=== PATIENT | female | born 1950 | race Caucasian/White ===

== ENCOUNTER 2022-04-12 10:08 | Inpatient (IN) | payer BC, OTHER ==
[2022-04-12] MEDS ORDERED: ACETAMINOPHEN 1000 MG/100 ML BAG IVPB ONE (12:44)
[2022-04-12] MEDS ORDERED: LIDOCAINE 5% TOPICAL PATCH TP ONE (12:44)
[2022-04-12] MEDS ORDERED: ACETAMINOPHEN INJECTION 100 ML IVPB ONE (14:03)
[2022-04-12] MEDS ORDERED: LIDOCAINE 5% TOPICAL PATCH ONE ×2 (14:03→15:59)
[2022-04-12 15:24] LABS: BASO % 0.6 % (0-2.0); EOS % 4.9 % (0-4.5); HEMATOCRIT 38.3 % (32.4-45.2); HEMOGLOBIN 12.6 GM/dL (10.7-15.3); LYMPH % 16.9 % (8-40); MCHC 32.9 g/dl (32.0-36.0); MEAN CELL VOLUME 88.2 fl (80-96); MEAN PLT VOLUME 7.7 fl (7.5-11.1); MONO % 8.3 % (3.8-10.2); NEUT % 69.3 % (42.8-82.8); PLATELET COUNT 212 10^3/uL (134-434); RBC 4.34 M/mm3 (3.60-5.2); RDW 17.4 % (11.6-15.6); WHITE BLOOD COUNT 5.2 K/mm3 (4.0-10.0)
[2022-04-12 15:41] LABS: ALBUMIN 3.1 g/dl (3.4-5.0); BLOOD UREA NITROGEN 21.6 mg/dL (7-18); CALCIUM 8.8 mg/dL (8.5-10.1); MAGNESIUM 2.3 mg/dL (1.8-2.4)
[2022-04-12 15:45] LABS: CREATININE 0.5 mg/dL (0.55-1.3); PHOSPHOROUS 3.7 mg/dL (2.5-4.9)
[2022-04-12 15:46] LABS: BILIRUBIN,TOTAL 0.8 mg/dL (0.2-1); TOT PROT 6.2 g/dl (6.4-8.2)
[2022-04-12] MEDS ORDERED: VANCOMYCIN 1 GM in D5W (PRE-DOCKED) 1,000 MG/250 ML IVPB ONE (16:02)
[2022-04-12] MEDS ORDERED: DEXAMETHASONE SOD PHOSPHATE 10 MG/1 ML VIAL IVPUSH ONE (16:05)
[2022-04-12] MEDS ORDERED: CEFEPIME HCL/D5W 2 GM/50 ML BAG IVPB ONE (16:07)
[2022-04-12 17:23] LABS: INR 1.04 (0.83-1.09)
[2022-04-12 17:25] LABS: ACTIVATED PTT 27.7 SECONDS (25.2-36.5)
[2022-04-12] MEDS ORDERED: DEXAMETHASONE SOD PHOSPHATE 10 MG/1 ML VIAL ONE (17:46)
[2022-04-12] MEDS ORDERED: VANCOMYCIN 1 GRAM (PRE-DOCKED) 1,000 MG/250 ML BAG IVPB ONE (17:46)
[2022-04-12] MEDS ORDERED: CEFEPIME 2 GM/100 ML BAG IVPB ONE (17:46)
[2022-04-12 17:57] LABS: URINE APPEARANCE CLEAR; URINE BILIRUBIN NEGATIVE (NEGATIVE); URINE COLOR YELLOW; URINE GLUCOSE (UA) NEGATIVE (NEGATIVE); URINE KETONE NEGATIVE (NEGATIVE); URINE LEUK ESTERASE NEGATIVE (NEGATIVE); URINE NITRITE NEGATIVE (NEGATIVE); URINE PROTEIN NEGATIVE (NEGATIVE)
[2022-04-12] MEDS ORDERED: morphine CARPU-JECT 4 MG/1 ML DISP.SYRIN IVPUSH ONE (19:12)
[2022-04-12] MEDS ORDERED: LIDOCAINE PATCH REMOVAL MC ONE (22:00)
[2022-04-12] MEDS ORDERED: ACETAMINOPHEN 1000 MG/100 ML BAG IVPB PRN (23:46)
[2022-04-13] MEDS ORDERED: morphine SULFATE 4 MG/ML VIAL ONE (00:38)
[2022-04-13 02:55] VITALS: BMI 27.6
[2022-04-13] MEDS ORDERED: MEROPENEM 500 MG VIAL (RESTRICTED TO ID) IVPB ONE ×2 (03:20→10:35)
[2022-04-13] MEDS ORDERED: DEXTROSE 5%-WATER 100 ML IVPB ONE ×2 (03:21→10:35)
[2022-04-13] MEDS: MEROPENEM 500 MG in DEXTROSE 5%-WATER 100 ML IVPB SCH ×2 (03:39→10:40)
[2022-04-13] MEDS: POLYETHYLENE GLYCOL (HEALTHYLAX) 3350 17 GM PACKET PO SCH ×3 (05:43→22:13)
[2022-04-13] MEDS: LEVOTHYROXINE NA 25 MCG TABLET (FP) PO SCH (06:46)
[2022-04-13] MEDS ORDERED: TOLTERODINE TARTRATE LA 4 MG CAP.SR.24H (FP) PO SCH ×3 (10:00)
[2022-04-13] MEDS: ENOXAPARIN NA (PORCINE) 40 MG/0.4 ML DISP.SYRIN SQ SCH (10:39)
[2022-04-13] MEDS: FLUoxetine HCL 20 MG CAPSULE PO SCH (10:40)
[2022-04-13] MEDS: PANTOPRAZOLE 40 MG TABLET PO SCH (10:40)
[2022-04-13 10:53] LABS: HEMATOCRIT 38.7 % (32.4-45.2); HEMOGLOBIN 12.8 GM/dL (10.7-15.3); MCH 28.8 pg (25.7-33.7); MCHC 33.1 g/dl (32.0-36.0); MEAN CELL VOLUME 87.1 fl (80-96); MEAN PLT VOLUME 7.9 fl (7.5-11.1); PLATELET COUNT 227 10^3/uL (134-434); RBC 4.44 M/mm3 (3.60-5.2); RDW 16.7 % (11.6-15.6); WHITE BLOOD COUNT 4.4 K/mm3 (4.0-10.0)
[2022-04-13 11:18] LABS: ALBUMIN 3.2 g/dl (3.4-5.0); BLOOD UREA NITROGEN 26.1 mg/dL (7-18); MAGNESIUM 2.3 mg/dL (1.8-2.4)
[2022-04-13 11:20] LABS: TOT PROT 6.3 g/dl (6.4-8.2)
[2022-04-13 11:21] LABS: PHOSPHOROUS 3.1 mg/dL (2.5-4.9)
[2022-04-13 11:22] LABS: BILIRUBIN,TOTAL 0.9 mg/dL (0.2-1); CREATININE 0.6 mg/dL (0.55-1.3)
[2022-04-13] MEDS ORDERED: VANCOMYCIN 1 GM/200 ML PREMIX BAG IVPB SCH (20:00)
[2022-04-13] MEDS: ATORVASTATIN CA 20 MG TABLET (FP) PO SCH (22:13)
[2022-04-14] MEDS ORDERED: MEROPENEM 500 MG in DEXTROSE 5%-WATER 100 ML IVPB SCH (02:00)
[2022-04-14] MEDS: POLYETHYLENE GLYCOL (HEALTHYLAX) 3350 17 GM PACKET PO SCH ×3 (05:19→21:05)
[2022-04-14] MEDS: LEVOTHYROXINE NA 25 MCG TABLET (FP) PO SCH (06:38)
[2022-04-14] MEDS: ENOXAPARIN NA (PORCINE) 40 MG/0.4 ML DISP.SYRIN SQ SCH (11:44)
[2022-04-14] MEDS: PANTOPRAZOLE 40 MG TABLET PO SCH (11:44)
[2022-04-14] MEDS: FLUoxetine HCL 20 MG CAPSULE PO SCH (11:44)
[2022-04-14] MEDS: oxyCODONE HCL 5 MG TABLET PO PRN ×2 (16:45→21:06)
[2022-04-14] MEDS ORDERED: VANCOMYCIN 1 GM/200 ML PREMIX BAG IVPB SCH (20:00)
[2022-04-14] MEDS: ATORVASTATIN CA 20 MG TABLET (FP) PO SCH (21:06)
[2022-04-15] MEDS: POLYETHYLENE GLYCOL (HEALTHYLAX) 3350 17 GM PACKET PO SCH ×3 (05:14→21:53)
[2022-04-15] MEDS: LEVOTHYROXINE NA 25 MCG TABLET (FP) PO SCH (06:06)
[2022-04-15] MEDS: ENOXAPARIN NA (PORCINE) 40 MG/0.4 ML DISP.SYRIN SQ SCH (10:36)
[2022-04-15] MEDS: FLUoxetine HCL 20 MG CAPSULE PO SCH (10:36)
[2022-04-15] MEDS: PANTOPRAZOLE 40 MG TABLET PO SCH (10:36)
[2022-04-15] MEDS: oxyCODONE HCL 5 MG TABLET PO PRN ×2 (10:37→16:53)
[2022-04-15] MEDS: ATORVASTATIN CA 20 MG TABLET (FP) PO SCH (21:53)
[2022-04-16] MEDS: oxyCODONE HCL 5 MG TABLET PO PRN ×2 (01:52→22:18)
[2022-04-16] MEDS: POLYETHYLENE GLYCOL (HEALTHYLAX) 3350 17 GM PACKET PO SCH ×3 (06:07→22:17)
[2022-04-16] MEDS: LEVOTHYROXINE NA 25 MCG TABLET (FP) PO SCH (06:07)
[2022-04-16] MEDS: ENOXAPARIN NA (PORCINE) 40 MG/0.4 ML DISP.SYRIN SQ SCH (10:00)
[2022-04-16] MEDS: FLUoxetine HCL 20 MG CAPSULE PO SCH (10:00)
[2022-04-16] MEDS: CHOLECALCIFEROL (VIT D3) 5000 UNITS (125 MCG) CAP PO SCH (18:08)
[2022-04-16] MEDS: ATORVASTATIN CA 20 MG TABLET (FP) PO SCH (22:17)
[2022-04-16] MEDS: CALCIUM CARBONATE 650 MG TABLET PO SCH (22:17)
[2022-04-17] MEDS: LEVOTHYROXINE NA 25 MCG TABLET (FP) PO SCH (06:18)
[2022-04-17] MEDS: POLYETHYLENE GLYCOL (HEALTHYLAX) 3350 17 GM PACKET PO SCH ×3 (09:59→21:06)
[2022-04-17] MEDS: ENOXAPARIN NA (PORCINE) 40 MG/0.4 ML DISP.SYRIN SQ SCH (09:59)
[2022-04-17] MEDS: CALCIUM CARBONATE 650 MG TABLET PO SCH ×2 (10:00→21:05)
[2022-04-17] MEDS: FLUoxetine HCL 20 MG CAPSULE PO SCH (10:00)
[2022-04-17] MEDS: CHOLECALCIFEROL (VIT D3) 5000 UNITS (125 MCG) CAP PO SCH (10:01)
[2022-04-17] MEDS: oxyCODONE HCL 5 MG TABLET PO PRN (13:25)
[2022-04-17] MEDS: ATORVASTATIN CA 20 MG TABLET (FP) PO SCH (21:05)
[2022-04-18] MEDS: LEVOTHYROXINE NA 25 MCG TABLET (FP) PO SCH (06:01)
[2022-04-18] MEDS: oxyCODONE HCL 5 MG TABLET PO PRN ×2 (06:04→18:39)
[2022-04-18] MEDS: ENOXAPARIN NA (PORCINE) 40 MG/0.4 ML DISP.SYRIN SQ SCH (10:55)
[2022-04-18] MEDS: CALCIUM CARBONATE 650 MG TABLET PO SCH ×2 (10:55→22:43)
[2022-04-18] MEDS: POLYETHYLENE GLYCOL (HEALTHYLAX) 3350 17 GM PACKET PO SCH ×3 (10:56→22:17)
[2022-04-18] MEDS: CHOLECALCIFEROL (VIT D3) 5000 UNITS (125 MCG) CAP PO SCH (10:56)
[2022-04-18] MEDS: FLUoxetine HCL 20 MG CAPSULE PO SCH (10:56)
[2022-04-18] MEDS: ATORVASTATIN CA 20 MG TABLET (FP) PO SCH (22:14)
[2022-04-19] MEDS: LEVOTHYROXINE NA 25 MCG TABLET (FP) PO SCH (06:12)
[2022-04-19] MEDS: oxyCODONE HCL 5 MG TABLET PO PRN ×2 (09:44→22:28)
[2022-04-19] MEDS: ENOXAPARIN NA (PORCINE) 40 MG/0.4 ML DISP.SYRIN SQ SCH (09:44)
[2022-04-19] MEDS: POLYETHYLENE GLYCOL (HEALTHYLAX) 3350 17 GM PACKET PO SCH ×2 (09:45→22:24)
[2022-04-19] MEDS: FLUoxetine HCL 20 MG CAPSULE PO SCH (09:45)
[2022-04-19] MEDS: CALCIUM CARBONATE 650 MG TABLET PO SCH ×2 (09:45→22:24)
[2022-04-19] MEDS: CHOLECALCIFEROL (VIT D3) 5000 UNITS (125 MCG) CAP PO SCH (09:45)
[2022-04-19] MEDS: TOLTERODINE TARTRATE LA 4 MG CAP.SR.24H (FP) PO SCH (15:37)
[2022-04-19] MEDS: ATORVASTATIN CA 20 MG TABLET (FP) PO SCH (22:24)
[2022-04-20] MEDS: LEVOTHYROXINE NA 25 MCG TABLET (FP) PO SCH (06:16)
[2022-04-20] MEDS: ENOXAPARIN NA (PORCINE) 40 MG/0.4 ML DISP.SYRIN SQ SCH (10:40)
[2022-04-20] MEDS: CHOLECALCIFEROL (VIT D3) 5000 UNITS (125 MCG) CAP PO SCH (10:40)
[2022-04-20] MEDS: TOLTERODINE TARTRATE LA 4 MG CAP.SR.24H (FP) PO SCH (10:41)
[2022-04-20] MEDS: CALCIUM CARBONATE 650 MG TABLET PO SCH ×2 (10:41→21:08)
[2022-04-20] MEDS: FLUoxetine HCL 20 MG CAPSULE PO SCH (10:41)
[2022-04-20] MEDS: oxyCODONE HCL 5 MG TABLET PO PRN ×3 (10:41→23:59)
[2022-04-20] MEDS: POLYETHYLENE GLYCOL (HEALTHYLAX) 3350 17 GM PACKET PO SCH ×2 (10:42→21:09)
[2022-04-20] MEDS: ATORVASTATIN CA 20 MG TABLET (FP) PO SCH (21:08)
[2022-04-20] MEDS: NYSTATIN POWDER 100,000 UNITS/GM - 15 GM TOPICAL POWDER TP SCH (21:08)
[2022-04-21] MEDS: LEVOTHYROXINE NA 25 MCG TABLET (FP) PO SCH (06:24)
[2022-04-21] MEDS: CHOLECALCIFEROL (VIT D3) 5000 UNITS (125 MCG) CAP PO SCH (09:35)
[2022-04-21] MEDS: TOLTERODINE TARTRATE LA 4 MG CAP.SR.24H (FP) PO SCH (09:35)
[2022-04-21] MEDS: CALCIUM CARBONATE 650 MG TABLET PO SCH (09:35)
[2022-04-21] MEDS: oxyCODONE HCL 5 MG TABLET PO PRN ×2 (09:36→17:04)
[2022-04-21] MEDS: NYSTATIN POWDER 100,000 UNITS/GM - 15 GM TOPICAL POWDER TP SCH (09:37)
[2022-04-21] MEDS: POLYETHYLENE GLYCOL (HEALTHYLAX) 3350 17 GM PACKET PO SCH (09:37)
[2022-04-21] MEDS: ENOXAPARIN NA (PORCINE) 40 MG/0.4 ML DISP.SYRIN SQ SCH (10:28)
[2022-04-21] MEDS: FLUoxetine HCL 20 MG CAPSULE PO SCH (10:29)
[2022-04-22] MEDS: CALCIUM CARBONATE 650 MG TABLET PO SCH ×3 (00:29→23:32)
[2022-04-22] MEDS: POLYETHYLENE GLYCOL (HEALTHYLAX) 3350 17 GM PACKET PO SCH ×4 (00:29→23:31)
[2022-04-22] MEDS: ATORVASTATIN CA 20 MG TABLET (FP) PO SCH ×2 (00:29→23:31)
[2022-04-22] MEDS: NYSTATIN POWDER 100,000 UNITS/GM - 15 GM TOPICAL POWDER TP SCH ×3 (00:29→22:12)
[2022-04-22] MEDS: oxyCODONE HCL 5 MG TABLET PO PRN ×2 (01:41→10:41)
[2022-04-22] MEDS: LEVOTHYROXINE NA 25 MCG TABLET (FP) PO SCH (06:06)
[2022-04-22] MEDS: ENOXAPARIN NA (PORCINE) 40 MG/0.4 ML DISP.SYRIN SQ SCH (10:19)
[2022-04-22] MEDS: CHOLECALCIFEROL (VIT D3) 5000 UNITS (125 MCG) CAP PO SCH (10:19)
[2022-04-22] MEDS: FLUoxetine HCL 20 MG CAPSULE PO SCH (10:20)
[2022-04-22] MEDS: TOLTERODINE TARTRATE LA 4 MG CAP.SR.24H (FP) PO SCH (10:20)
[2022-04-23] MEDS: oxyCODONE HCL 5 MG TABLET PO PRN ×2 (00:52→10:51)
[2022-04-23] MEDS: LEVOTHYROXINE NA 25 MCG TABLET (FP) PO SCH (06:12)
[2022-04-23] MEDS: ENOXAPARIN NA (PORCINE) 40 MG/0.4 ML DISP.SYRIN SQ SCH (10:49)
[2022-04-23] MEDS: CHOLECALCIFEROL (VIT D3) 5000 UNITS (125 MCG) CAP PO SCH (10:50)
[2022-04-23] MEDS: TOLTERODINE TARTRATE LA 4 MG CAP.SR.24H (FP) PO SCH (10:50)
[2022-04-23] MEDS: CALCIUM CARBONATE 650 MG TABLET PO SCH (10:50)
[2022-04-23] MEDS: FLUoxetine HCL 20 MG CAPSULE PO SCH (10:50)
[2022-04-23] MEDS: POLYETHYLENE GLYCOL (HEALTHYLAX) 3350 17 GM PACKET PO SCH ×2 (10:51→22:04)
[2022-04-23] MEDS: NYSTATIN POWDER 100,000 UNITS/GM - 15 GM TOPICAL POWDER TP SCH (10:56)
[2022-04-23] MEDS: ATORVASTATIN CA 20 MG TABLET (FP) PO SCH (22:04)
[2022-04-24] MEDS: NYSTATIN POWDER 100,000 UNITS/GM - 15 GM TOPICAL POWDER TP SCH ×2 (00:23→10:36)
[2022-04-24] MEDS: CALCIUM CARBONATE 650 MG TABLET PO SCH ×2 (00:24→10:38)
[2022-04-24] MEDS: oxyCODONE HCL 5 MG TABLET PO PRN ×3 (00:24→15:47)
[2022-04-24] MEDS: LEVOTHYROXINE NA 25 MCG TABLET (FP) PO SCH (06:11)
[2022-04-24] MEDS: ENOXAPARIN NA (PORCINE) 40 MG/0.4 ML DISP.SYRIN SQ SCH (10:35)
[2022-04-24] MEDS: POLYETHYLENE GLYCOL (HEALTHYLAX) 3350 17 GM PACKET PO SCH (10:35)
[2022-04-24] MEDS: FLUoxetine HCL 20 MG CAPSULE PO SCH (10:39)
[2022-04-24] MEDS: CHOLECALCIFEROL (VIT D3) 5000 UNITS (125 MCG) CAP PO SCH (10:39)
[2022-04-24] MEDS: TOLTERODINE TARTRATE LA 4 MG CAP.SR.24H (FP) PO SCH (10:39)
[2022-04-24 16:37] VITALS: BP 121/72; PULSE 92; TEMP 98
== END 2022-04-24 18:52 | DRG 543 ==
LOC: JER 10:08 → JERBED 15:27 → J5S 04-13 02:10
PROVIDERS: ADMIT Internal Medicine; ATTEND Internal Medicine
DX: M48.56XA Collapsed vertebra, not elsewhere classified, lumbar region, initial encounter for fracture (principal); G95.89 Other specified diseases of spinal cord; G04.1 Tropical spastic paraplegia; K57.90 Diverticulosis of intestine, part unspecified, without perforation or abscess without bleeding; M48.07 Spinal stenosis, lumbosacral region; K21.9 Gastro-esophageal reflux disease without esophagitis; N32.81 Overactive bladder; G35 Multiple sclerosis; E03.9 Hypothyroidism, unspecified; G62.9 Polyneuropathy, unspecified; E78.5 Hyperlipidemia, unspecified; R91.1 Solitary pulmonary nodule; K59.00 Constipation, unspecified; R26.81 Unsteadiness on feet; M54.50 Low back pain, unspecified; K31.89 Other diseases of stomach and duodenum; R32 Unspecified urinary incontinence; F41.8 Other specified anxiety disorders; R50.9 Fever, unspecified; I49.3 Ventricular premature depolarization; Z88.1 Allergy status to other antibiotic agents; Z88.0 Allergy status to penicillin
CPT/HCPCS: 0241U-QW; 36415; 70450-TC; 71045-TC-FY; 71260-TC; 72082-TC-FY; 72100-TC-FY; 72131-TC; 72148-TC; 72149-TC; 72156-TC; 72157-TC; 74177-TC; 74240-TC-FY; 80053; 81003; 82306; 83735; 84100; 85025; 85610; 85651; 85730; 86140; 86850; 86900; 86901; 87040; 87086; 93005; 93010; 93306-TC; 97116-GP; 97161-GP; 99285-25; A9579; C9803-CS; J1100; Q9967; U0003; U0005